=== PATIENT | male | born 1960 | race Caucasian/White ===

== ENCOUNTER 2022-01-31 11:52 | Emergency (ER) | payer MEDICAID ==
[~2022-01-31] VITALS: Ht 175.3 cm; Wt 70.3 kg
--- NOTE | 2022-01-31 11:55 | NUR ---
[id number] FROM WORK C/O HEADACHE S/P SYNCOPAL EPISODE AWAKE AND ALERT UPON ARRIVAL. PLACED ON BED, AAOX4, BREATHING EVEN AND UNLABORED SATURATING AT 97%RA
--- NOTE | 2022-01-31 12:20 | NUR ---
PATIENT TAKEN TO CT VIA [facility]
--- NOTE | 2022-01-31 12:35 | NUR ---
BLOOD DRAWN AND SENT TO LAB
[2022-01-31] MEDS: IV NS 0.9% 1,000 ML BAG IV ONE (12:40)
[2022-01-31 12:43] LABS: BASOPHILS # (AUTO) 0.1 K/uL (0.0-0.2); BASOPHILS % (AUTO) 0.8 % (0.0-2.0); EOSINOPHILS % (AUTO) 0.9 % (0.0-6.0); HEMATOCRIT 47 % (39-51); HEMOGLOBIN 15.2 g/dL (13.5-17.5); LYMPHOCYTES # (AUTO) 1.6 K/uL (0.8-4.8); MEAN CORPUSCULAR HGB CONC 33 g/dl (31.0-36.0); MEAN CORPUSCULAR VOLUME 82 fL (80-96); MONOCYTES # (AUTO) 0.7 K/uL (0.1-1.30); MONOCYTES % (AUTO) 8.1 % (2.0-12.0); NEUTROPHILS # (AUTO) 6.2 K/uL (1.8-8.9); NEUTROPHILS % (AUTO) 71.2 % (43.0-81.0); PLATELET COUNT (AUTO) 202 K/uL (150-450); WHITE BLOOD COUNT (AUTO) 8.7 K/uL (4.3-11.0)
[2022-01-31 13:00] LABS: ALANINE AMINOTRANSFERASE 33 U/L (12-78); ALBUMIN 3.5 g/dL (3.4-5.0); ALKALINE PHOSPHATASE 91 U/L (46-116); ASPARTATE AMINOTRANSFERASE 17 U/L (15-37); BILIRUBIN,DIRECT 0.2 mg/dL (0.0-0.2); BILIRUBIN,TOTAL 0.5 mg/dL (0.2-1.0); CALCIUM, SERUM 8.9 mg/dL (8.5-10.1); CARBON DIOXIDE 31 mmol/L (21-32); CHLORIDE 105 mmol/L (98-107); CREATININE 1.1 mg/dL (0.6-1.3); GLUCOSE 120 mg/dL (74-106); SODIUM SERUM 140 mmol/L (136-145); UREA NITROGEN, BLOOD 17 mg/dL (7-18)
--- NOTE | 2022-01-31 13:50 | NUR ---
SWAB FOR COVID19 SENT TO LAB
--- NOTE | 2022-01-31 14:02 | NUR ---
IV removed. Catheter intact and site benign. Pressure and 4x4 applied to site. No bleeding noted.Patient discharged to home in stable condition. Written and verbal after care instructions given. Patient verbalizes understanding of instruction.
[2022-01-31 14:03] VITALS: BP 145/90
== END 2022-01-31 14:04 | disposition home or self-care (01) ==
LOC: ER 11:54
DX: R55 Syncope and collapse (principal); S00.03XA Contusion of scalp, initial encounter; W18.30XA Fall on same level, unspecified, initial encounter; Y92.039 Unspecified place in apartment as the place of occurrence of the external cause; I10 Essential (primary) hypertension; R05.9 Cough, unspecified; Z20.822 Contact with and (suspected) exposure to COVID-19
CPT/HCPCS: 99291; 96360; 70450; 87426; 93005; 71045; 85025; 80048; 80076; 36415; 84484; 85730; 83880; J7030; C9803